=== PATIENT | female | born 1985 | race Native Hawaiian/Other Pacific Islander ===

== ENCOUNTER 2016-10-14 19:14 | Emergency (ER) | payer MEDICAID ==
[2016-10-14 19:45] LABS: Basophils % (Auto) 0.8 % (0.0-1.8); Eosinophils % (Auto) 1.9 % (0.0-4.3); Hematocrit 38.6 % (30.3-42.9); Hemoglobin 13.1 gm/dl (10.1-14.3); Mean Corpuscular HGB Conc 34 % (30-34); Mean Corpuscular Hemoglobin 33 pg (28-32); Mean Corpuscular Volume 97 fl (79-97); Platelet Count 249 K/mm3 (140-440); Red Cell Distribution Width 13.3 % (13.2-15.2); White Blood Count 11.7 K/mm3 (4.5-11.0)
[2016-10-14 20:01] LABS: Alanine Aminotransferase 19 units/L (7-56); Albumin 4.1 g/dL (3.9-5); Albumin/Globulin Ratio 1.2 %; Alkaline Phosphatase 55 units/L (35-129); Anion Gap 18 mmol/L; Blood Urea Nitrogen 9 mg/dL (7-17); Calcium 9.2 mg/dL (8.4-10.2); Carbon Dioxide 25 mmol/L (22-30); Chloride 102.2 mmol/L (98-107); Glucose 96 mg/dL (65-100); Lipase 23 units/L (13-60); Potassium 4.6 mmol/L (3.6-5.0); Sodium 141 mmol/L (137-145); Total Protein 7.4 g/dL (6.3-8.2)
[2016-10-14 20:31] LABS: Bilirubin,Urine NEG (Negative); Blood,Urine NEG (Negative); Ketones,Urine NEG (Negative); Leukocyte Esterase,Urine NEG (Negative); Mucus,Urine 3+ /HPF; Nitrite,Urine NEG (Negative); Protein,Urine <15 mg/dL mg/dL (Negative); Urobilinogen,Urine < 2.0 mg/dL (<2.0)
[2016-10-15] MEDS ORDERED: NACL 0.9% 1000 ML 1,000 ML IV ONE (00:26)
[2016-10-15] MEDS ORDERED: ZOFRAN IV ONE (00:26)
[2016-10-15] MEDS ORDERED: MORPHINE IV ONE (00:26)
[2016-10-15] MEDS ORDERED: TORADOL IV ONE (00:27)
--- NOTE | 2016-10-15 00:30 | Cat Scan Report ---
FINAL REPORT PROCEDURE: CT ABDOMEN PELVIS WO CON TECHNIQUE: Computerized axial tomography of the abdomen and pelvis was performed without intravenous contrast. This study is performed without intravascular contrast material and its sensitivity for abdominal and pelvic pathology, including neoplasms, inflammation, abscess, free fluid, thrombosis, arterial dissection and infarction, is reduced compared with a contrast enhanced study. HISTORY: abd pain lt flank pain COMPARISON: No prior studies are available for comparison. FINDINGS: Lower Lung beverly: No focal abnormality seen. Upper Abdomen: The liver, the gallbladder, the adrenal glands, the pancreas and the spleen are unremarkable. Kidneys, Ureters and Urinary bladder: No abnormalities are identified. No masses or renal calculi are visualized. There is no hydronephrosis. The ureters are not distended. No ureteral calculi are seen. There are calcifications in the lower pelvis which appear to represent phleboliths. Urinary bladder showed no abnormalities. Retroperitoneum: Abdominal aorta appears normal. No aneurysm is seen. Nonspecific subcentimeter lymph nodes are seen in the retroperitoneum. No pathologically enlarged lymph nodes are identified. Bowel: No focal bowel loop abnormalities are identified. Normal-appearing appendix is seen in the right lower quadrant. Reproductive organs: Uterus and adnexa are unremarkable. A small amount of nonspecific free fluid is visualized in the cul-de-sac. Other: No acute bony abnormalities are identified. IMPRESSION: There is a small amount of nonspecific free fluid in the cul-de-sac. No other abnormalities are seen. No evidence of renal or ureteral calculi. No evidence of hydronephrosis.
--- NOTE | 2016-10-15 01:03 | Emergency Department Report ---
HPI - General Chief Complaint: Abdominal Pain Time Seen by Provider: 10/14/16 23:01 - HPI HPI: Patient is a 31-year-old female who presents to the ED with the left flank pain, 6 out of 10 with radiation to the left upper back. Patient states symptoms started yesterday and has worsened today. Patient denies any dysuria, nausea, fever, vomiting, chest pain. Patient denies prior episode of such pain. ED Past Medical Hx - Past Medical History Previous Medical History?: Yes Hx Asthma: Yes - Surgical History Past Surgical History?: No - Social History Smoking Status: Current Every Day Smoker Substance Use Type: None - Medications Home Medications: Home Medications Medication Instructions Recorded Confirmed Last Taken Type methOCARBAMOL [Robaxin TAB] 500 mg PO BID #20 tab 10/15/16 Unknown Rx ED Review of Systems ROS: Stated complaint: BACK PAIN Other details as noted in HPI Comment: All other systems reviewed and negative Musculoskeletal: back pain Physical Exam - Physical Exam Vital Signs: Vital Signs 10/14/16 10/14/16 19:20 22:20 Temperature 98.5 F 98.6 F Pulse Rate 67 67 Respiratory 18 Rate Blood Pressure 135/88 Blood Pressure 123/58 [Left] O2 Sat by Pulse 100 100 Oximetry Physical Exam: Gen. alert and oriented 3 in no distress Head atraumatic normocephalic Eyes PERR LA EOMI Chest regular rate and rhythm normal S1-S2 lungs clear bilaterally Abdomen soft nondistended, left flank tenderness to palpation. Back no point tenderness paravertebral tenderness Neuro no focal deficit. Psych normal mood. ED Course Vital Signs 10/14/16 10/14/16 19:20 22:20 Temperature 98.5 F 98.6 F Pulse Rate 67 67 Respiratory 18 Rate Blood Pressure 135/88 Blood Pressure 123/58 [Left] O2 Sat by Pulse 100 100 Oximetry ED Medical Decision Making - Lab Data Result diagrams: 10/14/16 19:30 10/14/16 19:30 Critical care attestation.: If time is entered above; I have spent that time in minutes in the direct care of this critically ill patient, excluding procedure time. ED Disposition Clinical Impression: Flank pain Disposition: DC-01 TO HOME OR SELFCARE Is pt being admited?: No Does the pt Need Aspirin: No Condition: Stable Instructions: Abdominal Pain (ED) Prescriptions: methOCARBAMOL [Robaxin TAB] 500 mg PO BID #20 tab Referrals: LAURA ARORA MD [Primary Care Provider] - 3-5 Days
[2016-10-15] MEDS ORDERED: NACL ONE (01:04)
--- NOTE | 2016-10-15 02:40 | Cat Scan Report ---
FINAL REPORT EXAM: CT ANGIO CHEST HISTORY: CP, SOB, COMPARISON: None available. TECHNIQUE: Contiguous axial images were obtained. Additional sagittal and coronal reformatted images were obtained. Administration of IV contrast given per institution protocol. Images submitted for interpretation. 100 cc Omnipaque [id number]. FINDINGS: Heart normal in size. Thoracic aorta normal in caliber. No dissection. No pulmonary embolus. No pathologically enlarged intrathoracic or axillary lymph nodes. No focal consolidation or pleural effusion. Visualized upper abdomen is grossly unremarkable. Minimal degenerative changes of the thoracic spine. IMPRESSION: No pulmonary embolus. No focal consolidation or effusion.
[2016-10-15 03:19] VITALS: BP 115/64
== END 2016-10-15 03:19 | disposition home or self-care (01) ==
LOC: ED 19:14
DX: R10.9 Unspecified abdominal pain (principal); J45.909 Unspecified asthma, uncomplicated; F17.200 Nicotine dependence, unspecified, uncomplicated
CPT/HCPCS: 36415; 71275; 74176; 80053; 81001; 81025; 83690; 85025; 85379; 96361; 96374; 96375; 99284; J1885; J2270; J2405; J7030; Q9967

== ENCOUNTER 2018-08-10 14:37 | Emergency (ER) | payer SELFPAY ==
--- NOTE | 2018-08-10 14:54 | Emergency Department Report ---
Chief Complaint: Headache Stated Complaint: FEVER/HEADACHE Time Seen by Provider: 08/10/18 14:51 - HPI History of Present Illness: This is a 33 y.o. F. that presents to the ER with headache and fever x 2 weeks. Patient states she wake up with stabbing headache. Using nasal spray and Tylenol. Current smoker 3-5 cigarettes per day. LMP 07/30/2018 History of migraines and asthma. photophobia - Exam Vital Signs: Vital Signs 08/10/18 14:51 Temperature 98.6 F Pulse Rate 68 Respiratory 16 Rate Blood Pressure 116/81 O2 Sat by Pulse 98 Oximetry MSE screening note: Focused history and physical exam performed. Due to findings the following was ordered: This initial assessment/diagnostic orders/clinical plan/treatment(s) is/are subject to change based on patient's health status, clinical progression and re- assessment by fellow clinical providers in the ED. Further treatment and workup at subsequent clinical providers discretion. Patient/guardians urged not to elope from the ED as their condition may be serious if not clinically assessed and managed. Initial orders include: ACC for further evaluation. ED Disposition for MSE Condition: Stable
[2018-08-10 17:49] LABS: Bilirubin,Urine NEG (Negative); Blood,Urine NEG (Negative); Color,Urine Colorless (Yellow); Protein,Urine <15 mg/dL mg/dL (Negative); Urobilinogen,Urine < 2.0 mg/dL (<2.0); WBC,Urine < 1.0 /HPF (0.0-6.0)
[2018-08-10] MEDS ORDERED: BENADRYL PO ONE (17:57)
[2018-08-10] MEDS ORDERED: DECADRON IM ONE (17:58)
[2018-08-10] MEDS ORDERED: REGLAN PO ONE (17:58)
[2018-08-10] MEDS ORDERED: TYLENOL PO ONE (17:58)
[2018-08-10 18:35] LABS: Basophils # (Auto) 0.1 K/mm3 (0.0-0.1); Eosinophils # (Auto) 0.2 K/mm3 (0.0-0.4); Eosinophils % (Auto) 2.5 % (0.0-4.3); Hematocrit 37.7 % (30.3-42.9); Hemoglobin 12.7 gm/dl (10.1-14.3); Lymphocytes # (Auto) 4.2 K/mm3 (1.2-5.4); Lymphocytes % (Auto) 43.5 % (13.4-35.0); Mean Corpuscular HGB Conc 34 % (30-34); Mean Corpuscular Volume 97 fl (79-97); Monocytes # (Auto) 0.7 K/mm3 (0.0-0.8); Monocytes % (Auto) 6.7 % (0.0-7.3); Platelet Count 273 K/mm3 (140-440); Red Blood Count 3.88 M/mm3 (3.65-5.03); Red Cell Distribution Width 13.7 % (13.2-15.2)
--- NOTE | 2018-08-10 18:50 | Emergency Department Report ---
ED General Adult HPI - General Chief complaint: Headache Stated complaint: FEVER/HEADACHE Time Seen by Provider: 08/10/18 14:51 Source: patient Mode of arrival: Ambulatory Limitations: No Limitations - History of Present Illness Initial comments: pt is a 33 y/o aaf with hx of migraine headaches and asthma who presents for frontal headache 4/10 sharp radiating to eyes x 2 days, there is no decreased vision, headache is in same location, and intensity of all other headaces of past. ,, low back pain x 2 weeks there is no weaknes no numbness no tingling no fall injury or trauma no dysuria frequency or urgency. pt states she believes that she is there is no abdominal pain no dizziness no n/v j, pt denies asthma symptoms no sob no wheezing, no cough, no dizziness or light headedness. MD Complaint: Headache , low back pain Onset/Timin -: week(s) Location: head, back Radiation: other (sharp ) Severity scale (0 -10): 8 Quality: sharp Consistency: intermittent Improves with: rest Worsens with: movement, other (activity ) Associated Symptoms: headaches, malaise. denies: chest pain, cough, diaphoresis, fever/chills, loss of appetite, nausea/vomiting, rash, seizure, shortness of breath, syncope, weakness Treatments Prior to Arrival: none - Related Data Previous Rx's Medication Instructions Recorded Last Taken Type methOCARBAMOL [Robaxin TAB] 500 mg PO BID #20 tab 10/15/16 Unknown Rx Acetaminophen [Acetaminophen TAB] 1,000 mg PO Q6HR PRN #30 tablet 08/10/18 Unknown Rx Metoclopramide [Reglan] 10 mg PO Q6H PRN #30 tablet 08/10/18 Unknown Rx Sodium Polystyrene Sulfonate 15 gm PO ONCE #1 powd.pack 08/10/18 Unknown Rx [Kalexate] diphenhydrAMINE [Benadryl CAP] 25 mg PO Q6HR PRN #30 capsule 08/10/18 Unknown Rx Allergies Allergy/AdvReac Type Severity Reaction Status Date / Time No Known Allergies Allergy Verified 08/10/18 14:39 ED Review of Systems ROS: Stated complaint: FEVER/HEADACHE Other details as noted in HPI Constitutional: malaise. denies: chills, fever Eyes: denies: eye pain, eye discharge, vision change ENT: denies: ear pain, throat pain Respiratory: denies: cough, shortness of breath, wheezing Cardiovascular: denies: chest pain, palpitations Endocrine: no symptoms reported Gastrointestinal: denies: abdominal pain, nausea, vomiting, diarrhea, hematemesis, melena Genitourinary: denies: urgency, dysuria, frequency, hematuria, discharge, dyspareunia Musculoskeletal: back pain. denies: joint swelling, arthralgia, myalgia Skin: denies: rash, lesions Neurological: headache. denies: weakness, numbness, paresthesias, confusion, abnormal gait, vertigo Psychiatric: denies: anxiety, depression Hematological/Lymphatic: denies: easy bleeding, easy bruising ED Past Medical Hx - Past Medical History Hx Asthma: Yes - Surgical History Past Surgical History?: No - Social History Smoking Status: Current Every Day Smoker Substance Use Type: Alcohol - Medications Home Medications: Home Medications Medication Instructions Recorded Confirmed Last Taken Type methOCARBAMOL [Robaxin TAB] 500 mg PO BID #20 tab 10/15/16 Unknown Rx Acetaminophen [Acetaminophen TAB] 1,000 mg PO Q6HR PRN #30 tablet 08/10/18 Unknown Rx Metoclopramide [Reglan] 10 mg PO Q6H PRN #30 tablet 08/10/18 Unknown Rx Sodium Polystyrene Sulfonate 15 gm PO ONCE #1 powd.pack 08/10/18 Unknown Rx [Kalexate] diphenhydrAMINE [Benadryl CAP] 25 mg PO Q6HR PRN #30 capsule 08/10/18 Unknown Rx ED Physical Exam - General Limitations: No Limitations General appearance: alert, in no apparent distress - Head Head exam: Present: atraumatic, normocephalic - Eye Eye exam: Present: normal appearance, PERRL, EOMI. Absent: scleral icterus, nystagmus, periorbital swelling, periorbital tenderness Pupils: Present: normal accommodation - ENT ENT exam: Present: normal exam, normal orophraynx, mucous membranes moist, TM's normal bilaterally. Absent: normal external ear exam - Expanded ENT Exam Expanded Ear exam: Present: normal external inspection Teeth exam: Present: normal inspection Throat exam: Positive: normal inspection. Negative: tonsillar erythema, tonsillomegaly, tonsillar exudate, R peritonsillar mass, L peritonsillar mass - Neck Neck exam: Present: normal inspection, full ROM. Absent: lymphadenopathy - Respiratory Respiratory exam: Present: normal lung sounds bilaterally. Absent: respiratory distress, wheezes, stridor, chest wall tenderness - Cardiovascular Cardiovascular Exam: Present: regular rate, normal rhythm, normal heart sounds. Absent: systolic murmur, diastolic murmur, rubs, gallop - GI/Abdominal GI/Abdominal exam: Present: soft, normal bowel sounds. Absent: distended, tenderness, mass, hernia - Rectal Rectal exam: Present: deferred - Extremities Exam Extremities exam: Present: normal inspection, full ROM, normal capillary refill. Absent: tenderness, pedal edema, joint swelling, calf tenderness - Back Exam Back exam: Present: normal inspection, full ROM, tenderness (bilat lumbar muscle tenderness to deep palpation rom intact no deformity no swelling no crepitus ), muscle spasm, paraspinal tenderness. Absent: CVA tenderness (R), CVA tenderness (L), vertebral tenderness, rash noted - Expanded Back Exam Expanded Back exam: Absent: saddle anesthesia Back exam: Negative Straight Leg Raising: Left, Right - Neurological Exam Neurological exam: Present: alert, oriented X3, CN II-XII intact, normal gait, reflexes normal - Psychiatric Psychiatric exam: Present: normal affect - Skin Skin exam: Present: warm ED Course Vital Signs 08/10/18 08/10/18 14:51 19:48 Temperature 98.6 F 98.7 F Pulse Rate 68 62 Respiratory 16 16 Rate Blood Pressure 116/81 116/60 O2 Sat by Pulse 98 100 Oximetry ED Medical Decision Making - Lab Data Result diagrams: 08/10/18 18:06 08/10/18 18:06 Labs 08/10/18 08/10/18 08/10/18 17:40 18:06 18:06 WBC 9.8 RBC 3.88 Hgb 12.7 Hct 37.7 MCV 97 MCH 33 H MCHC 34 RDW 13.7 Plt Count 273 Lymph % (Auto) 43.5 H [place] % (Auto) 6.7 Eos % (Auto) 2.5 Baso % (Auto) 1.0 Lymph # 4.2 [place] # 0.7 Eos # 0.2 Baso # 0.1 Seg Neutrophils % 46.3 Seg Neutrophils # 4.5 Sodium 139 Potassium 5.1 H Chloride 101.7 Carbon Dioxide 28 Anion Gap 14 BUN 9 Creatinine 0.7 Estimated GFR > 60 BUN/Creatinine Ratio 13 Glucose 82 Calcium 9.1 Total Bilirubin < 0.20 AST 20 ALT 21 Alkaline Phosphatase 51 Total Protein 7.2 Albumin 4.2 Albumin/Globulin Ratio 1.4 Lipase 34 Urine Color Colorless Urine Turbidity Clear Urine pH 7.0 Ur Specific [place] 1.002 L Urine Protein <15 mg/dl Urine Glucose (UA) Neg Urine Ketones Neg Urine Blood Neg Urine Nitrite Neg Urine Bilirubin Neg Urine Urobilinogen < 2.0 Ur Leukocyte Esterase Neg Urine WBC (Auto) < 1.0 Urine RBC (Auto) 1.0 U Epithel Cells (Auto) 1.0 Urine HCG, Qual 08/10/18 18:27 WBC RBC Hgb Hct MCV MCH MCHC RDW Plt Count Lymph % (Auto) [place] % (Auto) Eos % (Auto) Baso % (Auto) Lymph # [place] # Eos # Baso # Seg Neutrophils % Seg Neutrophils # Sodium Potassium Chloride Carbon Dioxide Anion Gap BUN Creatinine Estimated GFR BUN/Creatinine Ratio Glucose Calcium Total Bilirubin AST ALT Alkaline Phosphatase Total Protein Albumin Albumin/Globulin Ratio Lipase Urine Color Urine Turbidity Urine pH Ur Specific [place] Urine Protein Urine Glucose (UA) Urine Ketones Urine Blood Urine Nitrite Urine Bilirubin Urine Urobilinogen Ur Leukocyte Esterase Urine WBC (Auto) Urine RBC (Auto) U Epithel Cells (Auto) Urine HCG, Qual Negative - Medical Decision Making K noted ast 5.1, pt is asymptomatic, heart sounds are normal s1 and s2 no mumur, gallop or rub, pt declines EKG, specimin was slight hemalized per lab, this is [facility] lab, however pt will follow up with [facility] tomorrow, will dc to home with kayexalate po 15gm po, all other symptoms are resolved with medications given in ed , headache is 0/10, no back pain , no n/v no sob no wheezing no cough, plan; dc to home with rx for benadryl, tylenol, reglan prn headache, follow up with pcp in 2 days return to ed if symptoms worsen. pt verbalized agreement and understanding with discharge plan, pt for dc to home in stable condition at this time. Critical care attestation.: If time is entered above; I have spent that time in minutes in the direct care of this critically ill patient, excluding procedure time. ED Disposition Clinical Impression: Headache Qualifiers: Headache type: unspecified Headache chronicity pattern: acute headache Intractability: not intractable Qualified Code(s): R51 - Headache Disposition: DC-01 TO HOME OR SELFCARE Is pt being admited?: No Does the pt Need Aspirin: No Condition: Stable Instructions: Acute Headache (ED) Additional Instructions: return to ed tomorrow for potassium level check Prescriptions: Acetaminophen [Acetaminophen TAB] 1,000 mg PO Q6HR PRN #30 tablet PRN Reason: Headache diphenhydrAMINE [Benadryl CAP] 25 mg PO Q6HR PRN #30 capsule PRN Reason: Headache Sodium Polystyrene Sulfonate [Kalexate] 15 gm PO ONCE #1 powd.pack Metoclopramide [Reglan] 10 mg PO Q6H PRN #30 tablet PRN Reason: Headache Referrals: CARMELINA ANTHONY MD [Primary Care Provider] - 3-5 Days Forms: Work/School Release Form(ED) Time of Disposition: 20:36
[2018-08-10 19:02] LABS: Alanine Aminotransferase 21 units/L (7-56); Albumin 4.2 g/dL (3.9-5); BUN/Creatinine Ratio 13; Blood Urea Nitrogen 9 mg/dL (7-17); Calcium 9.1 mg/dL (8.4-10.2); Hemolysis Index 12
[2018-08-10 19:07] LABS: HCG Qualitative,Urine Negative (Negative)
[2018-08-10 20:12] VITALS: BP 116/60
== END 2018-08-10 20:44 | disposition home or self-care (01) ==
LOC: ED 14:37
DX: R51 Headache (principal); J45.909 Unspecified asthma, uncomplicated; F17.200 Nicotine dependence, unspecified, uncomplicated
CPT/HCPCS: 36415; 80053; 81001; 81025; 83690; 85025; 96372; 99283; J1100